=== PATIENT | male | born 1965 | race Caucasian/White ===

== ENCOUNTER → 2023-07-16 06:17 | Day surgery (SDC) | payer BC, SELFPAY ==
[2023-07-07 07:18] VITALS: BMI 29.7
[2023-07-07 08:52] LABS: Hematocrit 47.7 % (39.0-52.0); Mean Corp Hgb Conc. 33.5 g/dL (33.0-37.0); Mean Corpuscular Hgb 30.3 pg (27.0-31.0); Mean Corpuscular Volume 90.3 fL (80.0-94.0); Mean Platelet Volume 9.6 fL (7.4-10.4); Platelet Count 200 10^3/uL (130-400); Red Blood Cell Count 5.28 10^6/uL (4.70-6.10); Red Cell Dist. Width 12.7 % (11.5-14.5); White Blood Cell Count 4.5 10^3/uL (4.8-10.8)
[2023-07-07 08:55] LABS: Urine Albumin Negative (Neg - Trace); Urine Bilirubin Negative (Negative); Urine Character Clear (Clear); Urine Color Yellow; Urine Glucose Negative (Negative); Urine Ketone Negative (Negative); Urine Leukocyte Negative (Negative); Urine Nitrite Negative (Negative); Urine Occult Blood Negative (Negative); Urine Specific Gravity 1.015 (<1.030); Urine Urobilinogen Negative (Neg - 1+); Urine pH 6.5 (5.0-9.0)
[2023-07-07 09:06] LABS: PT 13.2 Sec (11.4-14.6)
[2023-07-07 09:07] LABS: APTT 35.1 Sec (23.4-35.0)
[2023-07-07 11:13] LABS: Blood Urea Nitrogen 33 mg/dl (9-20); Carbon Dioxide 26 mmol/L (22-30); Chloride 102 mmol/L (98-107); Estimated Creatinine Clearance 67 ml/min; Glucose 86 mg/dl (70-99); Sodium 135 mmol/L (135-145); eGFR > 60.00
[2023-07-16] VITALS (8 sets, daily range): BP systolic 121–131; BP diastolic 62–95; BMI 29.7
[2023-07-16] MEDS: NORMOSOL-R 1000 IV (09:34)
[2023-07-16] MEDS: Pyridium 200 MG PO (12:48)
== END ==
LOC: SDS 06:17
PROVIDERS: ATTENDING PHYSICIAN Specialist; FAMILY PHYSICIAN Nurse Practitioner Family
DX: N53.19 Other ejaculatory dysfunction (principal); N40.1 Benign prostatic hyperplasia with lower urinary tract symptoms
CPT/HCPCS: 52402; 88304; 36415; 80048; 81003; 85027; 85610; 85730; 93005

== ENCOUNTER → 2023-12-08 14:56 | Outpatient (REF) | payer BC, SELFPAY | LOC: HWRCS 14:56 | PROVIDERS: ATTENDING PHYSICIAN Physician Assistant Medical; FAMILY PHYSICIAN Internal Medicine | DX: I34.0 Nonrheumatic mitral (valve) insufficiency (principal) | CPT/HCPCS: 93306 ==

== ENCOUNTER → 2024-12-25 07:28 | Outpatient (REF) | payer OTHER, SELFPAY | LOC: HWRCS 07:28 | PROVIDERS: ATTENDING PHYSICIAN Nuclear Medicine Nuclear Cardiology | DX: I34.0 Nonrheumatic mitral (valve) insufficiency (principal); Z98.890 Other specified postprocedural states | CPT/HCPCS: 93306 ==